=== PATIENT | female | born 1990 | race American Indian/Alaskan Native ===

== ENCOUNTER 2022-02-06 07:46 | Emergency (ER) | payer SELFPAY ==
[2022-02-06 09:34] LABS: Bilirubin,Urine NEG (Negative); Blood,Urine LG (Negative); Color,Urine Amber (Yellow)
[2022-02-06 09:40] LABS: Mucus,Urine 3+ /HPF
[2022-02-06 09:43] LABS: HCG Qualitative,Urine Negative (Negative); RBC,Urine > 182.0 /HPF (0.0-6.0)
[2022-02-06] MEDS ORDERED: ONDANSETRON 4 MG ODT TAB PO ONE (10:58)
[2022-02-06] MEDS ORDERED: KETOROLAC 30 MG/1 ML INJ IM ONE (10:58)
[2022-02-06] MEDS ORDERED: FAMOTIDINE 20 MG TAB PO ONE (10:58)
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
[2022-02-06 11:36] LABS: Basophils # (Auto) 0.1 K/mm3 (0.0-0.1); Basophils % (Auto) 0.9 % (0.0-1.8); Eosinophils # (Auto) 0.1 K/mm3 (0.0-0.4); Eosinophils % (Auto) 1.9 % (0.0-4.3); Hematocrit 38.5 % (30.3-42.9); Hemoglobin 12.4 gm/dl (10.1-14.3); Lymphocytes # (Auto) 1.2 K/mm3 (1.2-5.4); Mean Corpuscular HGB Conc 32 % (30-34); Mean Corpuscular Volume 82 fl (79-97); Monocytes # (Auto) 0.3 K/mm3 (0.0-0.8); Monocytes % (Auto) 4.6 % (0.0-7.3); Platelet Count 297 K/mm3 (140-440); Red Blood Count 4.68 M/mm3 (3.65-5.03); Red Cell Distribution Width 13.3 % (13.2-15.2)
[2022-02-06 11:45] LABS: Alanine Aminotransferase 19 units/L (7-56); Albumin 4.3 g/dL (3.9-5); BUN/Creatinine Ratio 18; Blood Urea Nitrogen 14 mg/dL (7-17); Calcium 9.3 mg/dL (8.4-10.2); Hemolysis Index 10
--- NOTE | 2022-02-06 11:53 | Ultrasound Report ---
LIMITED RUQ ABDOMINAL ULTRASOUND INDICATION: RUQ Pain. COMPARISON: No relevant prior imaging study available. FINDINGS: Pancreas: Visualized portions show no significant abnormality. Abdominal Aorta: No significant abnormality. IVC: No significant abnormality. Liver: The liver measures 13.4 cm in length. No significant abnormality. Normal hepatopedal blood fl ow in the main portal vein. Gallbladder: There is a large stone in the gallbladder neck. There also appears to be moderate sludge in the gallbladder. No abnormal distention or gallbladder wall thickening is present.. Bile ducts: The intrahepatic ducts appear normal caliber. The there is borderline to mild dilatation of the common bile duct measuring 5.5 mm but no obstructing lesion is seen on ultrasound. Right kidney: No significant abnormality visualized. Free fluid: None. Additional Findings: None. IMPRESSION: Cholelithiasis. No convincing findings of acute cholecystitis. The common bile duct is borderline to mildly dilated measuring 5.5 mm. No obstructing lesion is demonstrated on ultrasound. If choledocholi thiasis is suspected, MRCP could be obtained.. Signer Name: Eloy Guillen Jr, MD Signed: 02/06/2022 11:49 AM Workstation Name: [id number]
[2022-02-06 12:00] VITALS: BP 128/82
== END 2022-02-06 12:45 | disposition home or self-care (01) ==
LOC: ED 07:46
DX: R10.11 Right upper quadrant pain (principal); R11.2 Nausea with vomiting, unspecified; K80.10 Calculus of gallbladder with chronic cholecystitis without obstruction; Z79.899 Other long term (current) drug therapy
CPT/HCPCS: 36415; 76705; 80053; 81001; 81025; 83690; 85025; 87086; 96372; 99284; J1885; J3490; Q0162

== ENCOUNTER 2022-03-13 06:18 | Day surgery (SDC) | payer MEDICAID ==
[2022-03-13] MEDS ORDERED: LACTATED RINGERS 1,000 ML IV SCH (06:30)
[2022-03-13] MEDS ORDERED: BACTERIOSTATIC SODIUM CHLORIDE 0.9% 30 ML VIAL INFILTRATI ONE (06:47)
[2022-03-13] MEDS ORDERED: ceFAZolin/STERILE WATER 2 GM/20 ML SYRINGE IV NR (07:00)
[2022-03-13] MEDS ORDERED: LIDOCAINE MPF (2%) 20 MG/1 ML VIAL 5 ML ONE (07:18)
[2022-03-13] MEDS ORDERED: propofoL 200 MG/20 ML VIAL IV ONE (07:18)
[2022-03-13] MEDS ORDERED: ROCURONIUM 50 MG/5 ML INJ IV ONE ×2 (07:18→08:50)
[2022-03-13] MEDS ORDERED: KETAMINE/STERILE WATER 50 MG/ML SYRINGE ONE (07:24)
[2022-03-13] MEDS ORDERED: LIDOCAINE (1%) 10 MG/1 ML VIAL 20 ML MDV ONE (07:38)
[2022-03-13] MEDS ORDERED: BUPIVACAINE/PF (0.5%) 5 MG/1 ML 30 ML VIAL INFILTRATI ONE ×2 (07:38→08:33)
--- NOTE | 2022-03-13 07:40 | Anesthesia Day of Surgery ---
Anesthesia Day of Surgery - Day of Surgery Patient Examined: Yes Patient H&P Reviewed: Yes Patient is NPO: Yes
--- NOTE | 2022-03-13 07:41 | Anesthesia Consultation ---
Anesthesia Consult and Med Hx Date of service: 03/13/22 - Airway Anesthetic Teeth Evaluation: Good ROM Head & Neck: Adequate Mental/Hyoid Distance: Adequate Mallampati Class: Class I Intubation Access Assessment: Good - Pulmonary Exam CTA: Yes - Cardiac Exam Cardiac Exam: RRR - Pre-Operative Health Status ASA Pre-Surgery Classification: ASA2 Proposed Anesthetic Plan: General - Pulmonary Hx Asthma: No COPD: No Hx Pneumonia: No - Cardiovascular System Hx Hypertension: No - Central Nervous System Hx Seizures: No Hx Back Pain: Yes Hx Psychiatric Problems: No - Endocrine Hx Renal Disease: No Hx End Stage Renal Disease: No Hx Hypothyroidism: No Hx Hyperthyroidism: No - Hematic Hx Anemia: No Hx Sickle Cell Disease: No - Other Systems Hx Alcohol Use: No Hx Substance Use: No Hx Cancer: No
[2022-03-13] MEDS ORDERED: ONDANSETRON 4 MG/2 ML INJ IV PRN (07:42)
[2022-03-13] MEDS ORDERED: MAGNESIUM OXIDE 400 MG TAB PO ONE (07:42)
[2022-03-13] MEDS ORDERED: fentaNYL 100 MCG/2 ML INJ ONE (07:52)
[2022-03-13] MEDS ORDERED: MIDAZOLAM 2 MG/2 ML INJ ONE (07:53)
[2022-03-13] MEDS ORDERED: ACETAMINOPHEN 500 MG TAB PO SCH (08:00)
[2022-03-13] MEDS ORDERED: HYDROmorphone 0.5 MG/0.5 ML INJ IV PRN ×2 (08:00)
[2022-03-13] MEDS ORDERED: MAGNESIUM OXIDE 400 MG TAB PO SCH (08:00)
[2022-03-13] MEDS ORDERED: CELECOXIB 200 MG CAP PO NR (08:00)
[2022-03-13] MEDS ORDERED: GABAPENTIN 300 MG CAP PO NR (08:00)
[2022-03-13] MEDS ORDERED: LIDOCAINE (1%) 10 MG/1 ML VIAL 20 ML MDV INFILTRATI ONE (08:33)
[2022-03-13] MEDS ORDERED: SODIUM CHLORIDE 0.9% IRR 1,500 ML BOTTLE IR ONE (08:34)
[2022-03-13] MEDS ORDERED: WATER FOR IRRIG STERILE 1,500 ML BOTTLE IR ONE (08:34)
[2022-03-13] MEDS ORDERED: PHENYLEPHRINE/NS 1,000 MCG/10 ML SYRINGE (OR USE) IV ONE (08:38)
[2022-03-13] MEDS ORDERED: ePHEDrine SULFATE 50 MG/1 ML INJ ONE (08:43)
[2022-03-13] MEDS ORDERED: ONDANSETRON 4 MG/2 ML INJ ONE (08:49)
[2022-03-13] MEDS ORDERED: dexAMETHasone 20 MG/5 ML VIAL ONE (08:49)
[2022-03-13] MEDS ORDERED: KETOROLAC 30 MG/1 ML INJ ONE (08:49)
[2022-03-13] MEDS ORDERED: HYDROmorphone 0.5 MG/0.5 ML INJ ONE (08:50)
[2022-03-13] MEDS ORDERED: LACTATED RINGERS 1,000 ML ONE (09:05)
[2022-03-13] MEDS ORDERED: NEOSTIGMINE 10MG/10 ML INJ MDV ONE (09:25)
[2022-03-13] MEDS ORDERED: GLYCOPYRROLATE 0.4 MG/2 ML INJ ONE (09:25)
--- NOTE | 2022-03-13 10:01 | Short Stay Summary ---
Short Stay Documentation Date of service: 03/13/22 - History Principal diagnosis: SYMPTOMATIC CHOLELITHIASIS H&P: obtained from office - Allergies and Medications Current Medications: Allergies No Known Allergies Allergy (Unverified 12/23/13 14:59) Home Medications Medication Instructions Recorded Confirmed Last Taken Type RX: No Known Home Medications [No 03/04/22 03/04/22 Unknown History Reported Home Medications] Active Medications Acetaminophen (Acetaminophen 500 Mg Tab) 1,000 mg PO PREOP LOGAN Stop: 03/13/22 23:59 Last Admin: 03/13/22 07:46 Dose: 1,000 mg Cefazolin Sodium (Cefazolin/Sterile Water 2 Gm/20 Ml Syringe) 2 gm IV PREOP NR Stop: 03/13/22 13:00 Celecoxib (Celecoxib 200 Mg Cap) 200 mg PO PREOP NR Stop: 03/13/22 23:59 Last Admin: 03/13/22 07:46 Dose: 200 mg Gabapentin (Gabapentin 300 Mg Cap) 300 mg PO PREOP NR Stop: 03/13/22 23:59 Last Admin: 03/13/22 07:46 Dose: 300 mg Hydromorphone HCl (Hydromorphone 0.5 Mg/0.5 Ml Inj) 0.25 mg IV Q10MIN PRN PRN Reason: Pain, Moderate (4-6) Hydromorphone HCl (Hydromorphone 0.5 Mg/0.5 Ml Inj) 0.5 mg IV Q10MIN PRN PRN Reason: Pain , Severe (7-10) Lactated Ringer's (Lactated Ringers) 1,000 mls @ 100 mls/hr IV DIRECT LOGAN Last Admin: 03/13/22 07:20 Dose: 100 mls/hr Magnesium Oxide (Magnesium Oxide 400 Mg Tab) 400 mg PO PREOP LOGAN Stop: 03/13/22 23:59 Last Admin: 03/13/22 07:46 Dose: 400 mg Ondansetron HCl (Ondansetron 4 Mg/2 Ml Inj) 4 mg IV ONCE PRN PRN Reason: Nausea And Vomiting - Brief post op/procedure progress note Date of procedure: 03/13/22 Pre-op diagnosis: symptomatic cholelithiasis Post-op diagnosis: other (chronic cholelithiasis) Procedure: robotic assisted cholecystectomy Anesthesia: GETA, local Findings: Large stone impacted in neck of gallbladder. Chronically thickened gallbladder wall Surgeon: AARON METCALF Old Coin Dealer: KAREN CORRAL Estimated blood loss: minimal Pathology: list (gallbladder) Specimen disposition: to lab Condition: stable - Hospital course Hospital course: Pt observed in PACU and discharged to home in stable condition - Disposition Condition at discharge: Good Disposition: 01 HOME / SELF CARE / HOMELESS Short Stay Discharge Plan Activity: other (No heavy lifting for 1 week. No driving if taking prescription pain medications.) Diet: regular Wound: open to air Additional Instructions: SEE PRINTED INSTRUCTIONS Follow up with: PRIMARY CARE, [Primary Care Provider] - 7 Days AARON METCALF DO [Staff Physician] - 14 Days Prescriptions: RX: Ibuprofen [Motrin 800 MG tab] 800 mg PO Q8HR PRN #30 tablet PRN Reason: Pain, Moderate (4-6) HYDROcodone/APAP 5-325 [Girard 5/325] 1 each PO Q6HR PRN #15 tablet PRN Reason: Pain , Severe (7-10)
--- NOTE | 2022-03-13 10:01 | Post Anesthesia Evaluation ---
- Post Anesthesia Evaluation Patient Participated: Yes Airway Patent: Yes Stable Respiratory Function: Yes Nausea/Vomiting: No Temp > 96.8F: Yes Pain Manageable: Yes Adequeate Hydration: Yes Anesthesia Complications: No
--- NOTE | 2022-03-13 10:13 | Operative Report ---
Operative Report Operative Report: Date of procedure: 03/13/22 Pre-op diagnosis: symptomatic cholelithiasis Post-op diagnosis: other (chronic cholelithiasis) Procedure: robotic assisted cholecystectomy Anesthesia: GETA, local Findings: Large stone impacted in neck of gallbladder. Chronically thickened gallbladder wall Surgeon: AARON METCALF Computer Applications Developer: KAREN CORRAL Estimated blood loss: minimal Pathology: list (gallbladder) Specimen disposition: to lab Condition: stable Hospital course: Pt observed in PACU and discharged to home in stable condition Condition at discharge: Good Disposition: 01 HOME / SELF CARE / HOMELESS HPI an indication: 31-year-old female who was referred to the office for evaluation of gallstones and abdominal pain. Pertinent lab data and imaging were reviewed and patient was found to have symptomatic cholelithiasis and cholecystectomy was recommended. All risks, benefits, alternatives to surgery were discussed with the patient and questions answered. Consent was signed. Procedure in detail: The patient was identified in the preoperative area and taken back to the operating room, placed on the operating room table in supine position. After anesthesia was induced, the abdomen was prepped and draped in usual sterile fashion and timeout was performed. Local anesthetic was infiltrated into all of the skin incision sites. Using an 11 blade a periumbilical incision was made to the right of the umbilicus through which a Veress needle was inserted. The position of the veress needle was confirmed with the saline drop test and the abdomen was then insufflated to 15 mmHg. A 5mm Optiview trocar was placed through this incision. The abdomen was then inspected and there was no underlying injury to any of the abdominal contents. An additional right upper quadrant, left upper quadrant, and left lateral abdominal 8 mm robotic trocars were placed under direct visualization. The patient was placed in reverse Trendelenburg and tilted to the left. The robot was then docked in the usual fashion. A monopolar scissor was placed in arm #1, a Caudier grasper in arm #2, and a prograsp in arm #3. The surgeon transferred to the console. The gallbladder was visualized and there were adhesions from the omentum to the gallbladder. The gallbladder was chronically thickened with a large stone impacted at the neck. The gallbladder fundus was grasped and retracted cephalad and above the liver. The adhesions were dissected carefully using a combination hook electrocautery. The cystic duct and artery were then carefully dissected and the critical view obtained. The cystic duct and artery were the only two structures seen entering the gallbladder. Two hemolock clips were then placed on the proximal aspect of the cystic duct and one clip distally, and 1 hemolock clip was placed on the cystic artery proximally and one distally. The cystic duct and artery was transected in between the clips using EndoShears by the assistant farm operations manager surgeon. The gallbladder was dissected from the liver bed using hook electrocautery. The gallbladder was placed in the right upper quadrant and the liver bed and gallbladder fossa examined. Hemostasis was very carefully ensured. There was no active bleeding or bile leakage seen. The clips on the cystic duct and artery were intact. The robot was then undocked and the surgeon scrubbed back in. The remainder of the case was performed laparoscopically. The gallbladder was placed into a Endo Catch bag. The patient was then placed into neutral position. The gallbladder was removed via the 12 port. 12 mm port fascia was closed with interrupted 0 Vicryl sutures using the Oni Weems device. A tiny umbilical hernia defect was incorporated in the fascial closure. The remaining ports were removed under direct visualization. Skin incisions were closed with 4-0 Monocryl subcuticular stitches and skin glue. All skin incisions were once again infiltrated with local anesthetic. At the end case all sponge, instrument, sharp counts were correct 2. The patient was awoken from anesthesia, extubated, taken to PACU in stable condition.
[2022-03-13 10:52] VITALS: BP 121/77
== END 2022-03-13 11:30 | disposition home or self-care (01) ==
LOC: OR 06:18
PROVIDERS: ATTEND Surgery
DX: K80.20 Calculus of gallbladder without cholecystitis without obstruction (principal); Z79.899 Other long term (current) drug therapy; Z98.891 History of uterine scar from previous surgery; Z98.890 Other specified postprocedural states
CPT/HCPCS: 47562; 81025; 88304; J0690; J1100; J1170; J1815; J1885; J2250; J2370; J2405; J2704; J2710; J3010; J3490; J7120; S2900